=== PATIENT | female | born 1930 ===

== ENCOUNTER 2017-07-06 12:25 | Outpatient (CLI) | payer OTHER ==
[~2017-07-06] VITALS: Ht 152.4 cm; Wt 45.4 kg
== END 2017-07-06 12:45 | disposition home or self-care (01) ==
LOC: OFIC 805 12:25
DX: R42 Dizziness and giddiness (principal); H90.41 Sensorineural hearing loss, unilateral, right ear, with unrestricted hearing on the contralateral side

== ENCOUNTER 2017-09-20 14:25 | Outpatient (CLI) | payer OTHER ==
[~2017-09-20] VITALS: Ht 152.4 cm; Wt 45.4 kg
== END 2017-09-20 14:45 | disposition home or self-care (01) ==
LOC: OFIC 805 14:25
DX: H90.3 Sensorineural hearing loss, bilateral (principal); H81.13 Benign paroxysmal vertigo, bilateral